=== PATIENT | male | born 1960 | race Caucasian/White ===

== ENCOUNTER 2019-10-29 19:09 | Emergency (ER) | payer BC ==
[2019-10-29] MEDS ORDERED: MORPHINE SULFATE 4 MG/ML SYRINGE IV STA ×2 (19:32→20:40)
[2019-10-29] MEDS ORDERED: DIPH,PERTUS(ACELL)TETVAC-LF 0.5 ML VIAL IM ONE (19:33)
[2019-10-29] MEDS ORDERED: SODIUM CHLORIDE 0.9% 500 ML 500 ML IV ONE (19:34)
--- NOTE | 2019-10-29 19:36 | ED ---
General Adult HPI - General Chief complaint: Fall Stated complaint: fall Time Seen by Provider: 10/29/19 19:21 Source: patient, EMS, RN notes reviewed, old records reviewed Mode of arrival: ambulatory Limitations: no limitations - History of Present Illness Initial comments: 59-year-old male patient with no pertinent past medical history presents to ED for evaluation of fall. Patient was on a ladder approximately 8 feet off the ground. Patient was cutting a tree limb off. Reports the tree limb was pretty large approximately 14 inches in diameter extending multiple feet. He reports that the tree limb was follow and snapped off when he started cutting it with the chainsaw. He reports that the tree limb fell on him knocking him off the ladder and came down the ground. Patient fell on his back. Did not lose consciousness. Chief complaint is left shoulder pain and right rib pain. Systemic: Pt denies fatigue, fever/chills, rash. Pt denies weakness, night sweats, weight loss. Neuro: Pt denies headache, visual disturbances, syncope or pre-syncope. HEENT: Pt denies ocular discharge or irritation, otalgia, rhinorrhea, pharyngitis or notable lymphadenopathy. Cardiopulmonary: Pt denies chest pain, SOB, heart palpitations, dyspnea on exertion. Abdominal/GI: Pt denies abdominal pain, n/v/d. : Pt denies dysuria, burning w/ urination, frequency/urgency. Denies new onset urinary or bowel incontinence. Neuro: Pt denies new onset weakness, paresthesias. - Related Data Allergies Allergy/AdvReac Type Severity Reaction Status Date / Time No Known Allergies Allergy Verified 10/29/19 19:22 Review of Systems ROS Statement: Those systems with pertinent positive or pertinent negative responses have been documented in the HPI. ROS Other: All systems not noted in ROS Statement are negative. Past Medical History Past Medical History: Hypertension History of Any Multi-Drug Resistant Organisms: None Reported Past Surgical History: Appendectomy, Hernia Repair Past Psychological History: No Psychological Hx Reported Smoking Status: Never smoker Past Alcohol Use History: Occasional Past Drug Use History: None Reported General Exam - General Exam Comments Initial Comments: Constitutional: NAD, AOX3, Pt has pleasant affect. HEENT: NC/AT, trachea midline, neck supple, no lymphadenopathy. Posterior pharynx non erythematous, without exudates. External ears appear normal, without discharge. Mucous membranes moist. Eyes PERRLA, EOM intact. There is no scleral icterus. No pallor noted. Cardiopulmonary: RRR, no murmurs, rubs or gallops, no JVD noted. Lungs CTAB in anterior and posterior song. No peripheral edema. Abdominal exam: Abdomen soft and non-distended. Abdomen non-tender to palpation in all 4 quadrants. Bowel sounds active in LLQ. No hepatosplenomegaly. No ecchymosis Neuro: CN II-XII intact. No nuchal rigidity. No raccon eyes, no bourgeois sign, no hemotympanum. No cervical spinal tenderness. MSK: Posterior tibialis and radial pulse +2 bilaterally. Sensation intact in upper and lower extremities. full active range of motion right upper extremity right lower from the left lower extremity. Range of motion left upper extremity limited secondary to pain and right shoulder. Right shoulder or trapezius region is tender to palpation. No skin changes. No tenderness cervical thoracic lumbar spine. Pelvis or any other regions. Superficial laceration right forearm 1.5 cm vigorously irrigated approximate 2 simple interrupted s utures. Neurovascular intact before and after suture placement. Limitations: no limitations Course Vital Signs 10/29/19 10/29/19 10/29/19 19:18 20:00 21:30 Temperature 98.6 F Pulse Rate 56 L 75 62 Respiratory 20 20 18 Rate Blood Pressure 138/78 124/79 123/78 O2 Sat by Pulse 98 99 97 Oximetry 10/29/19 22:30 Temperature Pulse Rate 71 Respiratory 20 Rate Blood Pressure 131/78 O2 Sat by Pulse 97 Oximetry Procedures - Laceration Laceration #1 Consent Obtained: verbal consent Indication: laceration Site: upper extremity (right forearm) Size (cm): 1 (1.5) Description: linear Depth: simple, single layer Anesthetic Used: lidocaine 1% Anesthesia Technique: local infiltration Amount (mls): 2 Pre-repair: wound explored, irrigated extensively, deep structures intact Type of Sutures: nylon Size of Sutures: 5-0 Number of Sutures: 2 Technique: simple, interrupted Patient Tolerated Procedure: well, no complications Medical Decision Making - Medical Decision Making 59-year-old male patient presented to ED for evaluation of all from 8 feet with the treatment partially landing on him. Patient also stable, afebrile. Vital exam displayed some facial laceration tenderness of left shoulder region. CT brain C-spine chest and pelvis with contrast displayed mild interstitial pneumonia. Patient does report he has been having some coughing last recent days. Plain films did display a left scapular fracture. Patient initiated on antibiotics ceftriaxone and azithromycin. Laceration on right forearm was repaired. Case was discussed with Diana [facility] from [facility] recommends transfer. Patient be transferred to [facility] for further evaluation. Dr. Gao accepts patient. Case discussed in depth with Dr. Pagan. - Lab Data Result diagrams: 10/29/19 19:55 10/29/19 19:55 Lab Results 10/29/19 10/29/19 10/29/19 Range/Units 19:55 19:55 19:55 WBC 13.5 H (3.8-10.6) k/uL RBC 5.13 (4.30-5.90) m/uL Hgb 15.4 (13.0-17.5) gm/dL Hct 47.2 (39.0-53.0) % MCV 92.1 (80.0-100.0) fL MCH 30.0 (25.0-35.0) pg MCHC 32.6 (31.0-37.0) g/dL RDW 13.2 (11.5-15.5) % Plt Count 369 (150-450) k/uL Neutrophils % 84 % Lymphocytes % 9 % Monocytes % 5 % Eosinophils % 1 % Basophils % 1 % Neutrophils # 11.3 H (1.3-7.7) k/uL Lymphocytes # 1.2 (1.0-4.8) k/uL Monocytes # 0.7 (0-1.0) k/uL Eosinophils # 0.2 (0-0.7) k/uL Basophils # 0.1 (0-0.2) k/uL PT 10.9 (9.0-12.0) sec INR 1.1 (<1.2) APTT 20.9 L (22.0-30.0) sec Sodium 139 (137-145) mmol/L Potassium 3.7 (3.5-5.1) mmol/L Chloride 104 (98-107) mmol/L Carbon Dioxide 27 (22-30) mmol/L Anion Gap 8 mmol/L BUN 19 (9-20) mg/dL Creatinine 1.03 (0.66-1.25) mg/dL Est GFR (CKD-EPI)AfAm >90 (>60 ml/min/1.73 sqM) Est GFR (CKD-EPI)NonAf 80 (>60 ml/min/1.73 sqM) Glucose 106 H (74-99) mg/dL Calcium 9.6 (8.4-10.2) mg/dL Total Bilirubin 1.6 H (0.2-1.3) mg/dL AST 110 H (17-59) U/L ALT 77 H (4-49) U/L Alkaline Phosphatase 74 (38-126) U/L Troponin I (0.000-0.034) ng/mL Total Protein 6.8 (6.3-8.2) g/dL Albumin 4.4 (3.5-5.0) g/dL Urine Color Urine Appearance (Clear) Urine pH (5.0-8.0) Ur Specific Delta (1.001-1.035) Urine Protein (Negative) Urine Glucose (UA) (Negative) Urine Ketones (Negative) Urine Blood (Negative) Urine Nitrite (Negative) Urine Bilirubin (Negative) Urine Urobilinogen (<2.0) mg/dL Ur Leukocyte Esterase (Negative) Urine RBC (0-5) /hpf Urine WBC (0-5) /hpf Cellular Casts (0) /lpf Hyaline Casts (0-2) /lpf Urine Mucus (None) /hpf Serum Alcohol <10 mg/dL 10/29/19 10/29/19 Range/Units 19:55 22:12 WBC (3.8-10.6) k/uL RBC (4.30-5.90) m/uL Hgb (13.0-17.5) gm/dL Hct (39.0-53.0) % MCV (80.0-100.0) fL MCH (25.0-35.0) pg MCHC (31.0-37.0) g/dL RDW (11.5-15.5) % Plt Count (150-450) k/uL Neutrophils % % Lymphocytes % % Monocytes % % Eosinophils % % Basophils % % Neutrophils # (1.3-7.7) k/uL Lymphocytes # (1.0-4.8) k/uL Monocytes # (0-1.0) k/uL Eosinophils # (0-0.7) k/uL Basophils # (0-0.2) k/uL PT (9.0-12.0) sec INR (<1.2) APTT (22.0-30.0) sec Sodium (137-145) mmol/L Potassium (3.5-5.1) mmol/L Chloride (98-107) mmol/L Carbon Dioxide (22-30) mmol/L Anion Gap mmol/L BUN (9-20) mg/dL Creatinine (0.66-1.25) mg/dL Est GFR (CKD-EPI)AfAm (>60 ml/min/1.73 sqM) Est GFR (CKD-EPI)NonAf (>60 ml/min/1.73 sqM) Glucose (74-99) mg/dL Calcium (8.4-10.2) mg/dL Total Bilirubin (0.2-1.3) mg/dL AST (17-59) U/L ALT (4-49) U/L Alkaline Phosphatase (38-126) U/L Troponin I <0.012 (0.000-0.034) ng/mL Total Protein (6.3-8.2) g/dL Albumin (3.5-5.0) g/dL Urine Color Yellow Urine Appearance Clear (Clear) Urine pH 5.5 (5.0-8.0) Ur Specific Delta 1.050 H (1.001-1.035) Urine Protein Trace H (Negative) Urine Glucose (UA) Negative (Negative) Urine Ketones 2+ H (Negative) Urine Blood Small H (Negative) Urine Nitrite Negative (Negative) Urine Bilirubin Negative (Negative) Urine Urobilinogen <2.0 (<2.0) mg/dL Ur Leukocyte Esterase Negative (Negative) Urine RBC 9 H (0-5) /hpf Urine WBC 3 (0-5) /hpf Cellular Casts 3 (0) /lpf Hyaline Casts 1 (0-2) /lpf Urine Mucus Occasional H (None) /hpf Serum Alcohol mg/dL Disposition Clinical Impression: Fall, Scapula fracture, Laceration, Pneumonia Disposition: OTHER INSTITUTION NOT DEFINED Condition: Serious Is patient prescribed a controlled substance at d/c from ED?: No Referrals: None,Stated [Primary Care Provider] - 1-2 days - Out of Hospital Transfer - Req. Specs Out of Hospital Transfer - Requested Specifics: Other Emergency Center ([facility] - trauma)
[2019-10-29 20:09] LABS: Basophils # (A) 0.1 k/uL (0-0.2); Basophils % (A) 1 %; Eosinophils # (A) 0.2 k/uL (0-0.7); Eosinophils % (A) 1 %; HCT 47.2 % (39.0-53.0); HGB 15.4 gm/dL (13.0-17.5); Lymphocytes # (A) 1.2 k/uL (1.0-4.8); Lymphocytes % (A) 9 %; MCHC 32.6 g/dL (31.0-37.0); MCV 92.1 fL (80.0-100.0); Mean Platelet Volume 7.4; Monocytes # (A) 0.7 k/uL (0-1.0); Monocytes % (A) 5 %; Neutrophils # (A) 11.3 k/uL (1.3-7.7); Neutrophils % (A) 84 %; Platelet Count 369 k/uL (150-450); RBC 5.13 m/uL (4.30-5.90); RDW 13.2 % (11.5-15.5); WBC 13.5 k/uL (3.8-10.6)
[2019-10-29 20:15] LABS: ALT 77 U/L (4-49); AST 110 U/L (17-59); African American GFR (CKD) >90 (>60 ml/min/1.73 sqM); Albumin 4.4 g/dL (3.5-5.0); Alcohol <10 mg/dL; Alkaline Phosphatase 74 U/L (38-126); Anion Gap 8 mmol/L; Blood Urea Nitrogen 19 mg/dL (9-20); Calcium 9.6 mg/dL (8.4-10.2); Carbon Dioxide 27 mmol/L (22-30); Chloride 104 mmol/L (98-107); Glucose 106 mg/dL (74-99); Non-African American GFR(CKD) 80 (>60 ml/min/1.73 sqM); Potassium 3.7 mmol/L (3.5-5.1); Sodium 139 mmol/L (137-145); Total Bilirubin 1.6 mg/dL (0.2-1.3); Total Protein 6.8 g/dL (6.3-8.2)
--- NOTE | 2019-10-29 20:23 | CT ---
EXAMINATION TYPE: CT ChestAbdPelvis w con DATE OF EXAM: 10/29/2019 COMPARISON: None HISTORY: Fall from 8ft ladder, hit by branch. CT DLP: 3245.3 mGycm Automated exposure control for dose reduction was used. CONTRAST: Performed with IV Contrast, patient injected with 100 mL of Isovue 300. Images obtained from the thoracic inlet to the floor the pelvis with IV contrast. There is some interstitial infiltrates and atelectasis in the mid and posterior lung song. Heart si ze is normal. There is no pericardial effusion. There are no hilar masses. Thoracic aorta is intact. There is no aneurysm or dissection. There is no mediastinal adenopathy. There is no pneumothorax. There is no pleural effusion. There is 1 cm cyst posterior superior right l obe of the liver. Gallbladder appears normal. Spleen is intact. Pancreas appears normal. Stomach is i ntact. There is no adrenal mass. Kidneys show satisfactory contrast opacification. There is no hydronephrosi s. There is 2 cm cyst lateral right kidney. There is no retroperitoneal adenopathy. Bladder distends smoothly. There is no inguinal hernia. There is no free fluid in the pelvis. Prostate has normal size . There are multiple surgical clips at the terminal ileum. Appendix is not seen. There is no sign of ap pendicitis. There is no mesenteric edema. There is no ascites or free air. There is no bowel obstruction. Thoracic and lumbar vertebra have normal alignment. Posterior elements are intact. There is no parasp inal mass. The bony pelvis is intact. Hip joints are intact. There is no evidence of pelvic fracture. Sacroiliac joints appear intact. Hip joint spaces are fairly normal. There is no free fluid in the pelvis. Ther e is no evidence of focal bone destruction. The shoulder joints appear intact. I see no evidence of a rib fracture. IMPRESSION: Interstitial infiltrates and subsegmental atelectasis in the posterior lung song. No pneumothorax. No rib fracture seen. No sign of acute traumatic injury within the abdomen and pelvis. Hepatic and renal small cysts.
--- NOTE | 2019-10-29 20:29 | CT ---
EXAMINATION TYPE: CT brain cspine wo con DATE OF EXAM: 10/29/2019 COMPARISON: None HISTORY: Fall from 8ft ladder, hit by branch. CT DLP: 3245.3 mGycm Automated exposure control for dose reduction was used. CT brain and cervical spine performed without contrast. Ventricles and sulci appear normal. There is no mass effect nor midline shift. There is no sign of in tracranial hemorrhage. Calvarium is intact. There is no evidence of cerebral edema. Cervical vertebra have normal alignment. Posterior elements are intact. Disc spaces are fairly normal . Facet joints are intact. The skull base is intact. There is normal aeration of the temporal bones. IMPRESSION: Negative CT scan of the brain. Negative CT scan of the cervical spine.
[2019-10-29] MEDS ORDERED: AZITHROMYCIN 500 MG TAB PO STA (20:39)
[2019-10-29] MEDS ORDERED: LIDOCAINE 1% INJ 10MG/ML (20 ML MDV) SQ STA (20:40)
[2019-10-29 20:57] LABS: INR 1.1 (<1.2); Prothrombin Time 10.9 sec (9.0-12.0)
[2019-10-29 20:58] LABS: Partial Thromboplastin Time 20.9 sec (22.0-30.0)
--- NOTE | 2019-10-29 22:00 | XR ---
EXAMINATION TYPE: XR shoulder complete LT DATE OF EXAM: 10/29/2019 COMPARISON: NONE HISTORY: Ulnar pain TECHNIQUE: 3 views FINDINGS: There is transverse fracture through the body of the scapula. The glenohumeral joint is yee tomic. AC joint is intact. IMPRESSION: There is transverse fracture through the body of the scapula. There is separation of the fragments up to 1.5 cm.
--- NOTE | 2019-10-29 22:01 | XR ---
EXAMINATION TYPE: XR femur LT DATE OF EXAM: 10/29/2019 COMPARISON: NONE HISTORY: Fall. Pain. TECHNIQUE: 4 views FINDINGS: The knee joint is intact. Hip joint is intact. I see no fracture nor dislocation. There is no sign of knee joint effusion. IMPRESSION: Negative left femur exam.
--- NOTE | 2019-10-29 22:02 | XR ---
EXAMINATION TYPE: XR knee 4V LT DATE OF EXAM: 10/29/2019 COMPARISON: NONE HISTORY: Knee pain TECHNIQUE: 3 views FINDINGS: I see no fracture nor dislocation. Joint spaces are normal. There is no sign of knee joint effusion. IMPRESSION: Negative left knee exam.
--- NOTE | 2019-10-29 22:04 | XR ---
EXAMINATION TYPE: XR tibia fibula LT DATE OF EXAM: 10/29/2019 COMPARISON: NONE HISTORY: Leg pain TECHNIQUE: 4 views FINDINGS: Tibia and fibula appear intact. I see no fracture nor dislocation. Knee joint and ankle sean nt appear intact. IMPRESSION: Negative left tibia and fibula exam.
[2019-10-29 22:24] LABS: Appearance,Urine Clear (Clear); Bilirubin,Urine Negative (Negative); Blood,Urine Small (Negative); Cellular Casts,Urine 3 /lpf (0); Color,Urine Yellow; Glucose,Urine (UA) Negative (Negative); Hyaline Casts,Urine 1 /lpf (0-2); Ketones,Urine 2+ (Negative); Leukocyte Esterase,Urine Negative (Negative); Mucus,Urine Occasional /hpf; Nitrite,Urine Negative (Negative); PH, Urine 5.5 (5.0-8.0); Protein,Urine Trace (Negative); RBC,Urine 9 /hpf (0-5); Urobilinogen,Urine <2.0 mg/dL (<2.0); WBC,Urine 3 /hpf (0-5)
[2019-10-29] MEDS ORDERED: HYDROmorphone 0.5 MG/0.5 ML SYRINGE IVP STA ×2 (22:46→23:43)
[2019-10-29 23:43] VITALS: PULSE 75
[2019-10-30 00:20] VITALS: BP 125/77; RESP 18; TEMP 99.1
== END 2019-10-30 00:37 | disposition other institution (70) ==
LOC: EC 19:09
DX: S42.112A Displaced fracture of body of scapula, left shoulder, initial encounter for closed fracture (principal); J84.9 Interstitial pulmonary disease, unspecified; S01.81XA Laceration without foreign body of other part of head, initial encounter; S51.811A Laceration without foreign body of right forearm, initial encounter; Z20.828 Contact with and (suspected) exposure to other viral communicable diseases; W11.XXXA Fall on and from ladder, initial encounter; Y93.89 Activity, other specified; Y92.89 Other specified places as the place of occurrence of the external cause
CPT/HCPCS: 99285; 96365; 96375 ×2; 96376 ×2; 12001; 36415; 93005; 80053; 84484; 85025; 85610; 85730; 81001; 87040; 80320; 73030; 73552; 73590; 73564; 72125; 70450; 71260; 74177; U0003; J2270; J2001; J0696; J1170 ×2; Q9967